=== PATIENT | female | born 1970 | race Caucasian/White ===

== ENCOUNTER 2020-12-13 12:25 | Outpatient (REF) | payer BC, SELFPAY ==
[2020-12-13 13:55] LABS: Hematocrit 40.1 % (37-47); Mean Corpuscular HGB Conc 32.4 g/dl (31.0-35.0); Mean Corpuscular Hemoglobin 31.5 pg (27.0-33.0); Mean Corpuscular Volume 97.1 fL (80-98); Mean Platelet Volume 11.1 fL (9.4-12.3); Platelet Count 311 X10*3/uL (160-400); Red Blood Count 4.13 X10*6/uL (4.20-5.50); Red Cell Distribution Width 12.2 % (11.0-16.0); White Blood Count 7.9 X10*3/uL (4.8-10.8)
[2020-12-13 16:09] LABS: Alanine Aminotransferase 12 U/L (0-31); Albumin Level 4.4 g/dL (3.5-5.0); Alkaline Phosphatase 59 U/L (39-117); Anion Gap 13 (12-20); Aspartate Amino Transferase 17 U/L (5-31); Bilirubin Total 0.8 mg/dL (0.0-1.0); Blood Urea Nitrogen 15 mg/dL (9-16); Calcium 9.6 mg/dL (8.4-10.2); Carbon Dioxide 28 mmol/L (22-29); Chloride 106 mmol/L (96-108); Cholesterol 197 mg/dL; Estimated Glomerular Filt Rate > 60; Glucose Fasting 96 mg/dL (60-99); HDL Cholesterol 76 mg/dL; LDL Cholesterol Calculated 111 mg/dl; Potassium 4.6 mmol/L (3.3-5.1); Sodium 142 mmol/L (135-145); Total Protein 7.2 g/dL (6.5-8.0); Triglycerides 54 mg/dL
[2020-12-13 16:29] LABS: TSH reflex Free T4 0.78 uIU/mL (0.32-4.0)
[2020-12-14 17:03] LABS: Follicle Stimulating Hormone 18.2 mIU/mL
== END 2020-12-13 12:26 | disposition home or self-care (01) ==
LOC: HO.HMGCLDS 12:25
PROVIDERS: PCP Internal Medicine; Visit Provider Internal Medicine
DX: Z00.00 Encounter for general adult medical examination without abnormal findings (principal); E03.9 Hypothyroidism, unspecified; R92.8 Other abnormal and inconclusive findings on diagnostic imaging of breast
CPT/HCPCS: 36415; 80053; 80061; 83001; 84443; 85027

== ENCOUNTER 2021-12-16 09:16 | Outpatient (REF) | payer OTHER, SELFPAY ==
[2021-12-16 11:25] LABS: MANUAL DIFF FLAG NO
[2021-12-16 11:39] LABS: Basophils Absolute Auto 0.1 X10*3/uL (0.0-0.2); Basophils Percent Auto 0.6 % (0-2); Eosinophils Absolute Auto 0.2 X10*3/uL (0.0-0.4); Eosinophils Percent Auto 2.5 % (0-4); Hematocrit 40.8 % (37.0-47.0); Hemoglobin 13.3 g/dl (12.0-16.0); Imm Gran Abs Auto 0.02 X10*3/uL (0.00-0.03); Imm Gran Pct Auto 0.2 % (0.0-0.4); Lymphocytes Absolute Auto 1.7 X10*3/uL (1.2-4.9); Lymphocytes Percent Auto 20.1 % (20-40); Mean Corpuscular HGB Conc 32.6 g/dl (31.0-35.0); Mean Corpuscular Hemoglobin 31.1 pg (27.0-33.0); Mean Corpuscular Volume 95.3 fL (80.0-98.0); Mean Platelet Volume 10.5 fL (9.4-12.3); Monocytes Absolute Auto 0.5 X10*3/uL (0.1-1.2); Monocytes Percent Auto 6.5 % (2-11); Neutrophils Absolute Auto 5.9 x10*3/uL (2.0-8.3); Neutrophils Percent Auto 70.1 % (45-73); Platelet Count 349 X10*3/uL (160-400); Red Blood Count 4.28 X10*6/uL (4.20-5.50); White Blood Count 8.4 X10*3/uL (4.8-10.8)
[2021-12-16 12:15] LABS: Alanine Aminotransferase 11 U/L (0-31); Albumin Level 4.3 g/dL (3.5-5.0); Alkaline Phosphatase 74 U/L (39-117); Anion Gap 17 (12-20); Aspartate Amino Transferase 16 U/L (5-31); Bilirubin Total 0.5 mg/dL (0.0-1.0); Blood Urea Nitrogen 12 mg/dL (9-16); Calcium 9.4 mg/dL (8.4-10.2); Carbon Dioxide 25 mmol/L (22-29); Chloride 104 mmol/L (96-108); Cholesterol 201 mg/dL; Estimated Glomerular Filt Rate > 60; Glucose Fasting 103 mg/dL (60-99); HDL Cholesterol 75 mg/dL; LDL Cholesterol Calculated 116 mg/dl; Potassium 4.5 mmol/L (3.3-5.1); Sodium 141 mmol/L (135-145); Total Protein 7.2 g/dL (6.5-8.0); Triglycerides 52 mg/dL
[2021-12-16 12:20] LABS: TSH reflex Free T4 1.08 uIU/mL (0.32-4.0); Vitamin D 25-OH Total 54.3 ng/mL (>30)
== END 2021-12-16 09:17 | disposition home or self-care (01) ==
LOC: HO.HMGCLDS 09:16
PROVIDERS: PCP Internal Medicine; Visit Provider Internal Medicine
DX: Z00.00 Encounter for general adult medical examination without abnormal findings (principal); E03.9 Hypothyroidism, unspecified
CPT/HCPCS: 36415; 80053; 80061; 82306; 84443; 85025

== ENCOUNTER 2022-12-15 08:55 | Outpatient (REF) | payer OTHER, SELFPAY ==
[2022-12-15 11:54] LABS: MANUAL DIFF FLAG NO
[2022-12-15 12:02] LABS: Basophils Percent Auto 0.7 % (0-2); Eosinophils Absolute Auto 0.2 X10*3/uL (0.0-0.4); Eosinophils Percent Auto 3.9 % (0-4); Hematocrit 40.4 % (37.0-47.0); Imm Gran Abs Auto 0.01 X10*3/uL (0.00-0.03); Imm Gran Pct Auto 0.2 % (0.0-0.4); Lymphocytes Absolute Auto 1.8 X10*3/uL (1.2-4.9); Lymphocytes Percent Auto 32.3 % (20-40); Mean Corpuscular HGB Conc 32.2 g/dl (31.0-35.0); Mean Corpuscular Hemoglobin 31.5 pg (27.0-33.0); Mean Corpuscular Volume 97.8 fL (80.0-98.0); Mean Platelet Volume 11.6 fL (9.4-12.3); Monocytes Absolute Auto 0.4 X10*3/uL (0.1-1.2); Monocytes Percent Auto 7.5 % (2-11); Neutrophils Absolute Auto 3.1 x10*3/uL (2.0-8.3); Neutrophils Percent Auto 55.4 % (45-73); Platelet Count 273 X10*3/uL (160-400); Red Blood Count 4.13 X10*6/uL (4.20-5.50); White Blood Count 5.6 X10*3/uL (4.8-10.8)
[2022-12-15 13:12] LABS: Alanine Aminotransferase 9 U/L (0-31); Albumin Level 4.1 g/dL (3.5-5.0); Alkaline Phosphatase 63 U/L (39-117); Anion Gap 12 (12-20); Aspartate Amino Transferase 18 U/L (5-31); Bilirubin Total 0.6 mg/dL (0.0-1.0); Blood Urea Nitrogen 11 mg/dL (9-16); Calcium 9.4 mg/dL (8.4-10.2); Carbon Dioxide 26 mmol/L (22-29); Chloride 108 mmol/L (96-108); Cholesterol 205 mg/dL (<200); Estimated Glomerular Filt Rate > 60; Glucose Fasting 98 mg/dL (60-99); HDL Cholesterol 71 mg/dL (>40); LDL Cholesterol Calculated 121 mg/dL (<100); Potassium 3.9 mmol/L (3.3-5.1); Sodium 142 mmol/L (135-145); Triglycerides 69 mg/dL (<150)
== END 2022-12-15 08:56 | disposition home or self-care (01) ==
LOC: HO.HMGCLDS 08:55
PROVIDERS: PCP Internal Medicine; Visit Provider Internal Medicine
DX: Z00.00 Encounter for general adult medical examination without abnormal findings (principal); E03.9 Hypothyroidism, unspecified
CPT/HCPCS: 36415; 80053; 80061; 84443; 85025

== ENCOUNTER 2022-12-22 07:46 | Outpatient (AMB) | payer OTHER, SELFPAY ==
--- NOTE | 2022-12-22 08:10 | MHC.PC.OV ---
Vital Signs 12/22/22 08:11 Height 5 ft 5 in Weight 170 lb BMI 28.3 BP 102/66 Blood Pressure Location Lt brachial Position Sitting Pulse 57 Pulse Source Pulse Oximeter Pulse Oximetry (%) 97 Oxygen Delivery Method Room Air Intake Visit Reasons: annual PE Intake Note: Pt is here today for PE. Pt states that her last pap was last year in January at [facility]. Allergies No Known Allergies Allergy (Verified 12/22/22 08:12) Medication List - Last Reconciled 12/22/22 by Delia Hinds MD levonorgestrel-ethinyl estrad 0.1-20 mg-mcg 1 tab PO DAILY levothyroxine 50 mcg PO DAILY miscellaneous medical supply 1 ea miscellaneous .QD Tobacco use date assessed: 12/22/22 Dental Screening Dental Screen Date: 12/22/22 Did you have a dental visit in the last 12 months?: Yes Did you have a dental problem in the last 6 months where you did not have access to dental care?: No Was dental information given to patient?: Patient has dentist HPI annual PE HPI Details Pt presents for PE. 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 [facility] Medical History (Updated 12/22/22 @ 08:35 by Delia Hinds MD) Mammogram abnormal Hypothyroid Normal pelvic exam Annual physical exam Family History (Updated 12/22/22 @ 08:15 by Jen Kumar [facility] Father Diabetes Prostate cancer Mother No problems noted. Social History Housing: House Patient Tobacco Use Status: Never used Tobacco e-Cigarette/Vaping Use: Never Used Current occupational status: employed Cognitive needs: No Hearing needs: No Vision needs: No Questionnaire PHQ-9 Over the last 2 weeks, how often have you been bothered by any of the following problems? 1. Little interest or pleasure in doing things: not at all 2. Feeling down, depressed, or hopeless: not at all 3. Trouble falling or staying asleep, or sleeping too much: not at all 4. Feeling tired or having little energy: not at all 5. Poor appetite or overeating: not at all 6. Feeling bad about yourself - or that you are a failure or have let yourself or your family down: not at all 7. Trouble concentrating on things, such as reading the newspaper or watching television: not at all 8. Moving or speaking so slowly that other people could have noticed. Or the opposite - being so fidgety or restless that you have been moving around a lot more than usual: not at all 9. Thoughts that you would be better off or of hurting yourself in some way: not at all Total score: 0 Depression Screening Interpretation: Negative Depression Screening Done: Yes Source: Developed by Drs. Brennon Toro, Kellie Farah, Keny Teixeira and colleagues, with an educational maria l from [employer]. Thrive Questionnaire Date Thrive assessed: 12/22/22 I am a: Patient What is your living situation today?: I have a steady place to live Within the past 12 months, did the food you bought not last and you didn't have the money to get more?: Never true Within the past 12 months, did you worry whether your food would run out before you got money to buy more?: Never true Do you have trouble paying for medicines?: No Do you have trouble getting transportation to medical appointments?: No Do you have trouble paying your heating and electricity bill?: No Do you have trouble taking care of your child, family member or friend?: No Do you have trouble with day-to-day activities such as bathing, preparing meals, shopping, managing finances, etc.?: No Are you currently unemployed and looking for a job?: No Are you interested in more education?: No Please select the resources that you would like help with: None Currently or been in a relationship where the following occur: no concerns reported AUDIT C Alcohol Use Questionnaire (AUDIT-C) 1. How often do you have a drink containing alcohol?: Monthly or less 2. How many drinks containing alcohol do you have on a typical day when you are drinking?: 1 or 2 3. How often do you have six or more drinks on one occasion?: Never Total Score: 1 JUDITH-7 AMB Questionnaire JUDITH-7 Date JUDITH - 7 assessed: 12/22/22 Feeling nervous, anxious, or on edge: 0 = Not at all Not being able to stop or control worryin = Not at all Worrying too much about different things: 0 = Not at all Trouble relaxin = Not at all Being so restless that it is hard to sit still: 0 = Not at all Becoming easily annoyed or irritable: 0 = Not at all Feeling afraid as if something awful might happen: 0 = Not at all Total JUDITH-7 score (0-4 normal; 5-9 mild; 10-14 moderate; 15-21 severe): 0 Source: Developed by Drs. Brennon Toro, Kellie Farah, Keny Teixeira and colleagues, with an educational maria l from [employer]. Review of Systems Const All systems reviewed & are unremarkable except as noted in HPI and below Reports no additional complaints Eyes Reports no additional complaints ENT Reports no additional complaints Card Reports no additional complaints Resp Reports no additional complaints GI Reports no additional complaints Reports no additional complaints Physical exam (Primary Care) Vital Signs: Last Vital Signs Pulse 57 12/22/22 08:11 BP 102/66 12/22/22 08:11 Pulse Ox 97 12/22/22 08:11 Oxygen Delivery Method Room Air 12/22/22 08:11 BMI result Body Mass Index 28.3 Tobacco/Smoking Status: Tobacco use Status Tobacco use date assessed 12/22/22 12/22/22 08:16 Patient Tobacco Use Status Never used Tobacco 12/22/22 08:16 e-Cigarette/Vaping Use Never Used 12/22/22 08:12 Depression Screening Interpretation: Negative Thrive Assessment: Date of Thrive Assessment Date Thrive assessed 12/13/20 12/22/22 08:12 Currently or been in a relationship where the following occur: no concerns reported Const General: no acute distress HENMT Head: Yes normal to inspection Ears: hearing grossly normal bilaterally Face and sinus: Yes normal facial exam Throat: Yes posterior oropharynx normal Eyes General: appearance normal, both eyes and all related structures Neck Neck: Yes no lymphadenopathy and Yes supple Resp Effort & Inspection: normal respiratory effort Auscultation: clear to auscultation bilaterally Cardio Rhythm: regular rhythm Heart sounds: S1 normal heart sound present and S2 normal heart sound present GI Inspection: Yes normal to inspection Palpation (GI): Soft to palpation Percussion: Yes normal to percussion Auscultation: normal bowel sounds Extrem Other: Tenderness over anterior lateral aspect of her left shoulder, decreased range of motion when reaching overhead and with adduction Assessment and Plan Assessment & Plan (1) Normal pelvic exam: 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 she is up-to-date with mammogram and Pap, refer for colonoscopy (4) Shoulder pain, left: Code(s): M25.512 - Pain in left shoulder Plan: check XR, try Meloxicam and PT, if persists MR and ortho Orders: Orders XR shoulder LT min 2V Today M25.512 - Pain in left shoulder PT Evaluation and Treatment Today M25.512 - Pain in left shoulder Comprehensive [place]. Panel Fast 365 Days E03.9 - Hypothyroidism, unspecified, Z00.00 - Encounter for general adult medical examination without abnormal findings Complete Blood Count Auto Diff 365 Days E03.9 - Hypothyroidism, unspecified, Z00.00 - Encounter for general adult medical examination without abnormal findings TSH reflex Free T4 365 Days E03.9 - Hypothyroidism, unspecified, Z00.00 - Encounter for general adult medical examination without abnormal findings Lipid Panel 365 Days E03.9 - Hypothyroidism, unspecified, Z00.00 - Encounter for general adult medical examination without abnormal findings Referrals Gastroenterology Referral Z00.00 - Encounter for general adult medical examination without abnormal findings Medications: New meloxicam 15 mg PO DAILY 14 tabs 0RF Coding Level of Care Code Est Pt Prev Care 40-64y(73979) Diagnoses Normal pelvic exam Z01.419 Hypothyroid E03.9 Annual physical exam Z00.00 Shoulder pain, left M25.512
[2022-12-22 08:11] VITALS: BP 102/66; PULSE 57; O2SAT 97; BMI 28.3
== END 2022-12-22 09:06 | disposition home or self-care (01) ==
PROVIDERS: Visit Provider Internal Medicine
DX: Z00.00 Encounter for general adult medical examination without abnormal findings (principal); E03.9 Hypothyroidism, unspecified; M25.512 Pain in left shoulder
CPT/HCPCS: 99396

== ENCOUNTER 2022-12-22 08:42 | Outpatient (REF) | payer OTHER, SELFPAY ==
--- NOTE | ~2022-12-22 | XR_ITS ---
EXAMINATION: XR SHOULDER, LEFT CLINICAL INFORMATION: Left shoulder pain COMPARISON: None available. TECHNIQUE: AP external rotation, Grashey, scapular Y, and axillary views of the left shoulder. FINDINGS: The bones and soft tissues are normal. No fracture. Glenohumeral and acromioclavicular alignment is anatomic with normal joint space. No abnormal soft tissue calcifications. XR/XR shoulder LT min 2V IMPRESSION: Unremarkable left shoulder
== END 2022-12-22 08:43 | disposition home or self-care (01) ==
LOC: HO.HMGCX 08:42
PROVIDERS: PCP Internal Medicine; Visit Provider Internal Medicine
DX: M25.512 Pain in left shoulder (principal)
CPT/HCPCS: 73030

== ENCOUNTER 2023-01-11 11:00 | Outpatient (RCR) | payer OTHER, SELFPAY ==
--- NOTE | 2022-12-26 11:35 | MHC.PT.EP ---
[facility] [place] Office [place] Office [place] Office [address] Tigist Hernandez [address] [phone] F: [phone] F: [phone] F: [phone] F: [phone] Physical Therapy Plan of Care Date of Evaluation: 12/26/22 Date of Surgery: n/a Diagnosis: pain in L shoulder Assessment: Patient is a 52 year old female presenting to PT with complaints of pain in her L shoulder. Pt reports onset of pain began a few weeks ago due to insidious onset. She presents today with impairments in pain, ROM, shoulder strength, posture. 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 Pt expresses assisted goal of reducing pain, and is motivated to work towards this in PT. Clinical presentation today is most consistent with signs and sx associated with L shoulder pain and pt will benefit from skilled PT 2 week x 4 weeks to address the following problems and impairments noted upon evaluation: pain, ROM, shoulder strength, posture. These problems limit the patient with the following functional activities: work, reaching, lifting, ADLs. The prescribed treatment plan of care is medically necessary. Co-morbidities of none were identified and taken into considerations of plan of care. Pt was educated on HEP, role of PT, prognosis, POC. Frequency and Duration: The patient will be seen 2 x week x 4 weeks Short Term Goals: Pt will demonstrate improved L shoulder ROM to pain free in available range in 2 weeks. Pt will demonstrate improved L shoulder MMT strength to 5/5 in 2 weeks. Pt will demonstrate improved postural awareness by sitting with biomechanically correct posture without cues throughout session to improve overall postural function in 2 weeks. [employer] Goals: Pt will demonstrate improved SPADI score by 13 points in 4 weeks for improved functional mobility. Pt will demonstrate ability to reach and lift with min to no pain in 4 weeks for improved tolerance to ADLs. Pt will demonstrate ability to work with min to no pain in 4 weeks for return to PLOF. Treatment Plan: Modalities to reduce pain, spasms and effusion. Manual therapy to restore motion and function. Therapeutic exercise to improve strength and flexibility. Neuromuscular re-education for posture and balance. Therapeutic activities to return to functional activities of daily living. Electronically signed by: Nupur Lynne, PT, DPT, ATC Please sign and return to therapist. Thank you for your referral.
--- NOTE | 2023-02-12 07:22 | MHC.PT.DC ---
[facility] [place] Office [place] Office [place] Office [address] Tigist Hernandez [address] [phone] F: [phone] F: [phone] F: [phone] F: [phone] Physical Therapy Discharge Report Diagnosis: pain in L shoulder Date of Surgery: n/a Date of Evaluation: 12/26/22 Date of Discharge: 02/12/23 Treatments to Date: 6 Cancellations to Date: 0 No Shows to Date: 0 Discharge Status: Achieved Goals Improved Function Independent with HEP Discharge Summary: Pt had been placed on 30 day hold. Pt was feeling better at last visit and plan was to d/c if no new problems came up. Therefore, pt to be d/c. Electronically signed by: Nupur Lynne, PT, DPT, ATC Please sign and return to therapist. Thank you for your referral.
== END 2023-02-12 07:22 | disposition home or self-care (01) ==
LOC: HO.PTCHIC 11:00
PROVIDERS: PCP Internal Medicine; Visit Provider Internal Medicine
DX: M25.512 Pain in left shoulder (principal)
CPT/HCPCS: 97110; 97140; 97161

== ENCOUNTER 2023-01-23 10:46 | Outpatient (AMB) | payer OTHER, SELFPAY ==
[2023-01-23 10:52] VITALS: BP 131/54; PULSE 68; BMI 29.1
--- NOTE | 2023-01-23 10:52 | MHC.OFFVIS ---
Intake Vital Signs 01/23/23 10:52 Height 5 ft 5 in Weight 174 lb 9.698 oz BMI 29.1 BP 131/54 L Blood Pressure Location Lt brachial Position Sitting Pulse 68 Intake Visit Reasons: Colonoscopy Screening Intake Note: Patient presents to in office visit today as a new patient for colonoscopy screening. CC: Patient denies having any GI symptoms or concerns today. Home Attendant Required: No Accompanied by: Self / Same As Patient Allergies No Known Allergies Allergy (Verified 12/22/22 08:12) Medication List - Last Reconciled 01/23/23 by Selina Ann PA-C cholecalciferol (vitamin D3) 25 mcg PO DAILY levothyroxine 50 mcg PO DAILY HPI HPI Comments History of Present Illness Details 52 y/o female index screening colonoscopy-no family history of GI cancers, she has no GI complaints. Bowels normal Appetite good Chronic respiratory issues Full-time at [employer] No nausea, vomiting, hematemesis, hematochezia abdominal pain fever or chills [facility] Medical History (Updated 01/23/23 @ 11:36 by Selina Ann PA-C) Mammogram abnormal Hypothyroid Normal pelvic exam Annual physical exam Surgical History No pertinent past surgical history Family History Father Diabetes Prostate cancer Mother No problems noted. (Updated 01/23/23 @ 11:17 by Selina Ann PA-C) Household Members Other:: 2 kids Housing: House Patient Tobacco Use Status: Never used Tobacco e-Cigarette/Vaping Use: Never Used Current occupational status: employed Cognitive needs: No Hearing needs: No Vision needs: No Review of Systems Const All systems reviewed & are unremarkable except as noted in HPI and below Card Denies chest pain and Denies dyspnea Resp Denies dyspnea GI Denies abdominal pain, Denies hematochezia, Denies heartburn, Denies nausea and Denies vomiting Physical Exam Vital Signs: Last Vital Signs Pulse 68 01/23/23 10:52 BP 131/54 L 01/23/23 10:52 BMI result Body Mass Index 29.1 Const General: cooperative, healthy appearing, comfortable, no acute distress and well developed Orientation/consciousness: patient oriented x3 Limitations: no limitations Eyes Sclerae: sclerae normal Resp Effort & Inspection: normal respiratory effort and able to speak in complete sentences Auscultation: clear to auscultation bilaterally, no rales, no rhonchi and no wheezes Cardio Rate: regular rate Rhythm: regular rhythm Heart sounds: S1 normal heart sound present and S2 normal heart sound present GI Palpation (GI): Soft to palpation and nontender Auscultation: normal bowel sounds Skin General skin exam: no rashes or lesions noted Neuro General: patient oriented x3 Extrem General: Yes full ROM Psych Appearance: grossly normal and well kempt Mental Status: mental status grossly normal Speech and movement: Normal speech and movement present and Clear speech present Affect: normal affect Attitude: cooperative Thought content: Normal thought content present Insight: Good insight present (Psych) Judgement: Good judgement present (Psych) Assessment & Plan Assessment & Plan (1) Encounter for screening colonoscopy: Comment: Index screening colonoscopy Discussed procedure, rare risks the for escort as well as prep Code(s): Z12.11 - Encounter for screening for malignant neoplasm of colon Orders: Orders Colonoscopy - GI Use Only Today Z12.11 - Encounter for screening for malignant neoplasm of colon Medications: New bisacodyl (Dulcolax (bisacodyl)) Day before procedure, prep day Take 4 tablets by mouth upon awakening followed by large glass of water 20 mg (4 x 5 mg) PO ONCE 4 tabs 0RF colonoscopy prep 1 day Z12.11 - Encounter for screening for malignant neoplasm of colon polyethylene glycol 3350 (Miralax) Take as directed by mouth the day before your procedure. 238 grams PO ONCE PRN 238 grams 0RF laxative effect 1 day Patient Instructions: Very pleasant 52-year-old female referred for index screening colonoscopy no GI complaints index screening MG prep- reviewed- lit given Encouraged to call with questions or concerns Coding Level of Care Code New Pt Level 3 (07274) Diagnoses Encounter for screening colonoscopy Z12.11 Time Spent (min) 25
== END 2023-01-23 13:13 | disposition home or self-care (01) ==
PROVIDERS: PCP Internal Medicine; Visit Provider Physician Assistant
DX: Z01.818 Encounter for other preprocedural examination (principal); Z12.11 Encounter for screening for malignant neoplasm of colon
CPT/HCPCS: S0285

== ENCOUNTER → 2023-01-23 10:46 | Outpatient (BNVA) | payer OTHER, SELFPAY | PROVIDERS: PCP Internal Medicine; Visit Provider Physician Assistant ==

== ENCOUNTER 2023-07-02 05:50 | Day surgery (SDC) | payer OTHER, SELFPAY ==
--- NOTE | 2023-06-29 09:55 | HO.ANESPROP2 ---
Documented by User: Nan Navarro NP 06/29/23 09:55 HPI - Anesthesia Eval Consult details Narrative: 52yo F for Colonoscopy [facility] Active Problems Active Problems: All Active Problems Encounter for screening colonoscopy (Acute) Shoulder pain, left (Acute) Mammogram abnormal (Acute) Hypothyroid (Acute) Normal pelvic exam (Acute) Annual physical exam (Acute) Past Medical History Medical History (Updated 01/23/23 @ 11:36 by Selina Ann PA-C) Mammogram abnormal Hypothyroid Normal pelvic exam Annual physical exam Family History Family History Father Diabetes Prostate cancer Mother No problems noted. Surgical History Surgical History No pertinent past surgical history Social History Social History (Updated 01/23/23 @ 11:17 by Selina Ann PA-C) Household Members Other:: 2 kids Housing: House Patient Tobacco Use Status: Never used Tobacco e-Cigarette/Vaping Use: Never Used Are you DNR?: No Advance Directives: No Advance Directives Information Provided: Yes Current occupational status: employed Cognitive needs: No Hearing needs: No Vision needs: No Meds Allergies Allergy/AdvReac Type Severity Reaction Status Date / Time No Known Allergies Allergy Verified 12/22/22 08:12 Home Medications ?Medication ?Instructions ?Recorded ?Confirmed ?Last Taken ?Type cholecalciferol (vitamin D3) 25 25 mcg PO DAILY 01/23/23 01/23/23 Unknown History mcg (1,000 unit) capsule Assessment and Plan Assessment Anesthesia Assessment: Chart Reviewed Documented by User: Falguni Chong MD 07/02/23 07:07 [facility] Past Medical History Medical History (Updated 01/23/23 @ 11:36 by Selina Ann PA-C) Mammogram abnormal Hypothyroid Normal pelvic exam Annual physical exam Family History Family History Father Diabetes Prostate cancer Mother No problems noted. Family history of problems with anesthesia: No Surgical History Surgical History No pertinent past surgical history History of Problems with Anesthesia: No Social History Social History (Updated 01/23/23 @ 11:17 by Selina Ann PA-C) Household Members Other:: 2 kids Housing: House Patient Tobacco Use Status: Never used Tobacco e-Cigarette/Vaping Use: Never Used Are you DNR?: No Advance Directives: No Advance Directives Information Provided: Yes Current occupational status: employed Cognitive needs: No Hearing needs: No Vision needs: No Meds Allergies Allergy/AdvReac Type Severity Reaction Status Date / Time No Known Allergies Allergy Verified 12/22/22 08:12 Home Medications ?Medication ?Instructions ?Recorded ?Confirmed ?Last Taken ?Type cholecalciferol (vitamin D3) 25 25 mcg PO DAILY 01/23/23 01/23/23 Unknown History mcg (1,000 unit) capsule Exam Airway Mallampati Class: II (implants left lateral) TM Dist: >3cm Neck ROM: Full Heart: rrr Lungs: cta Assessment and Plan Assessment Anesthesia Assessment: Anesthesia Plan Discussed Final Anesthetic Review Family History of Problems with Anesthesia: No History of Problems with Anesthesia: No NPO: Yes ASA Class: II Final Preanesthetic Review: No Changes in Pt Med Stat, Meds/Allgs Chart Reviewed and Consent Obtained/Reviewed Patient Risk: Low Procedure Risk: Low Anesthetic Plan Anesthetic Plan: MAC: Disposition: Standard PACU
[2023-07-02 06:44] VITALS: BP 142/73; PULSE 76; RESP 18; TEMP 36.4; O2SAT 98; BMI 27.5
[2023-07-02] MEDS: Lactated Ringers 1,000 ML 100 ML IVCONT (07:02)
--- NOTE | 2023-07-02 07:20 | PC.NURSE ---
pt last period was 3 mths ago unable to urinate bolus given anaesthesia aware
--- NOTE | 2023-07-02 07:38 | MHC.SHP ---
Pre-Procedural Eval Section A - 24 Hr Update-Section A only Date of Service: 07/02/23 The patient is an INPATIENT: No The patient has been examined within 24 hours of the surgical procedure. The History & Physical has been completed within 30 days and I have reviewed it.: No Section B - Complete if H&P > 30 days Chief Complaint: colon cancer screening Relevant Family History (Specify if Yes): No Relevant Social History: None Present Medications: see Short Stay Collaborative assessment Medical History: Significant History (Hypothyroidism) History of Previous Operations: No relevant previous surgery Allergies: Allergies Allergy/AdvReac Type Severity Reaction Status Date / Time No Known Allergies Allergy Verified 12/22/22 08:12 Review of Systems Sugical H&P ROS: Negative: Constitution, Cardiovascular, Respiratory and Gastrointestinal Exam Surgical H&P Exam: Normal: Heart, Normal: Lungs, Normal: Extremities and Normal: Abdomen Plan Diagnosis/Plan: Unchanged I have reviewed the history and physical and performed a pertinent physical examination on my patient. No changes have occurred unless specified. Time Spent With Patient Time: Total time managing care of this patient today ____ minutes.
--- NOTE | 2023-07-02 08:14 | P.OP_ITS ---
Operative Note Operative Note Date of Service: 07/02/23 Narrative: COLONOSCOPY TILL CECUM Pre-op diagnosis: Colon cancer screening (First colonoscopy). Post-op diagnosis:? Diverticulosis Endoscopist:? Pamela Orourke MD Anesthesia:?MAC Consent: Indications for the procedure and potential complications of bleeding, perforation, reaction to medications and missed diagnosis were discussed with the patient and informed consent was obtained. Instrument: Olympus PCF H 190 L variable stiffness pediatric colonoscope Monitoring: Vital signs and clinical assessment, intermittent blood pressure monitoring, continuous EKG monitoring, Pulse oximetry and Carbon Dioxide monitoring were done throughout the procedure. Please see anesthesia flowsheet. Colon withdrawl time was 11 minutes. Procedure: The patient was placed in the left lateral decubitis position and pre-procedure medications were administered. After a digital rectal examination of the ano-rectum, the video colonoscope was inserted into the rectum and advanced through the colon to the cecum. The colonoscope was slowly withdrawn in a retrograde panoramic fashion and the colon mucosa was carefully examined including a retroflexed view of the rectum. Findings and interventions are described below. Procedure Difficulty: without difficulty Findings: Terminal Ileum: Not evaluated Cecum: Normal Ascending Colon: Normal Transverse Colon: Normal Descending Colon: Moderate diverticulosis Sigmoid Colon: Moderate diverticulosis Rectum: Normal Ano-rectum: Moderate internal hemorrhoids Colon preparation: Excellent, after some irrigation. [place] Bowel Preparation Scale Right colon; 3 Transverse colon: 3 Left colon; 3 (0 = Unprepared colon segment with mucosa not seen due to solid stool that cannot be cleared. 1 = Portion of mucosa of the colon segment seen, but other areas of the colon segment not well seen due to staining, residual stool and/or opaque liquid. 2 = Minor amount of residual staining, small fragments of stool and/or opaque liquid, but mucosa of colon segment seen well. 3 = Entire mucosa of colon segment seen well with no residual staining, small fragments of stool or opaque liquid) Impression and Post Procedure Diagnosis: Colonoscopy Findings: No polyps were detected Moderate diverticulosis seen in the left colon Plan: Repeat Colonoscopy in 10 years. Above findings were reviewed with the patient and relevant handouts were given and the discharge area.
[2023-07-02 08:57] LABS: HCG Quantitative < 2 mIU/mL
[2023-07-02 09:47] VITALS: BP 104/60; PULSE 77; RESP 16; TEMP 36.9; O2SAT 99
[2023-07-02 10:02] VITALS: BP 125/87; PULSE 60; RESP 16; TEMP 36.9; O2SAT 99
== END 2023-07-02 10:46 | disposition home or self-care (01) ==
PROVIDERS: Anesthesiology; PCP Internal Medicine; Visit Provider Internal Medicine Gastroenterology
PROC: 0DJD8ZZ Inspection of Lower Intestinal Tract, Via Natural or Artificial Opening Endoscopic (ICD-10-PCS; CPT 45378; principal; 2023-07-02 08:30)
DX: Z12.11 Encounter for screening for malignant neoplasm of colon (principal); K57.30 Diverticulosis of large intestine without perforation or abscess without bleeding; E03.9 Hypothyroidism, unspecified; Z79.899 Other long term (current) drug therapy; Z56.0 Unemployment, unspecified
CPT/HCPCS: 45378; 36415; 84702; J2704

== ENCOUNTER → 2023-07-02 05:50 | Outpatient (BNV) | payer OTHER, SELFPAY | PROVIDERS: PCP Internal Medicine; Visit Provider Internal Medicine Gastroenterology | DX: Z12.11 Encounter for screening for malignant neoplasm of colon (principal); K57.90 Diverticulosis of intestine, part unspecified, without perforation or abscess without bleeding; K64.8 Other hemorrhoids | CPT/HCPCS: 45378 ==

== ENCOUNTER 2023-12-05 08:56 | Outpatient (REF) | payer OTHER, SELFPAY ==
[2023-12-05 10:03] LABS: MANUAL DIFF FLAG NO
[2023-12-05 10:10] LABS: Basophils Percent Auto 0.9 % (0-2); Eosinophils Absolute Auto 0.3 X10*3/uL (0.0-0.4); Eosinophils Percent Auto 5.7 % (0-4); Hematocrit 39.5 % (37.0-47.0); Hemoglobin 12.8 g/dl (12.0-16.0); Imm Gran Abs Auto 0.01 X10*3/uL (0.00-0.03); Imm Gran Pct Auto 0.2 % (0.0-0.4); Lymphocytes Absolute Auto 1.6 X10*3/uL (1.2-4.9); Lymphocytes Percent Auto 35.7 % (20-40); Mean Corpuscular HGB Conc 32.4 g/dl (31.0-35.0); Mean Corpuscular Hemoglobin 31.7 pg (27.0-33.0); Mean Corpuscular Volume 97.8 fL (80.0-98.0); Mean Platelet Volume 10.6 fL (9.4-12.3); Monocytes Absolute Auto 0.5 X10*3/uL (0.1-1.2); Monocytes Percent Auto 11.1 % (2-11); Neutrophils Absolute Auto 2.1 x10*3/uL (2.0-8.3); Neutrophils Percent Auto 46.4 % (45-73); Platelet Count 269 X10*3/uL (160-400); Red Blood Count 4.04 X10*6/uL (4.20-5.50); Red Cell Distribution Width 12.3 % (11.0-16.0); White Blood Count 4.6 X10*3/uL (4.8-10.8)
[2023-12-05 10:44] LABS: Alanine Aminotransferase 11 U/L (0-31); Albumin Level 4.2 g/dL (3.5-5.0); Alkaline Phosphatase 74 U/L (39-117); Anion Gap 10 (12-20); Aspartate Amino Transferase 16 U/L (5-31); Bilirubin Total 0.4 mg/dL (0.0-1.0); Blood Urea Nitrogen 11 mg/dL (9-16); Carbon Dioxide 26 mmol/L (22-29); Chloride 109 mmol/L (96-108); Cholesterol 191 mg/dL (<200); Estimated Glomerular Filt Rate > 60; Glucose Fasting 107 mg/dL (60-99); HDL Cholesterol 67 mg/dL (>40); LDL Cholesterol Calculated 107 mg/dL (<100); Potassium 3.9 mmol/L (3.3-5.1); Sodium 141 mmol/L (135-145); TSH reflex Free T4 1.51 uIU/mL (0.32-4.0); Total Protein 7.1 g/dL (6.5-8.0); Triglycerides 87 mg/dL (<150)
== END 2023-12-05 08:57 | disposition home or self-care (01) ==
LOC: HO.HMGCLDS 08:56
PROVIDERS: PCP Internal Medicine; Visit Provider Internal Medicine
DX: Z00.00 Encounter for general adult medical examination without abnormal findings (principal); E03.9 Hypothyroidism, unspecified
CPT/HCPCS: 36415; 80053; 80061; 84443; 85025

== ENCOUNTER 2023-12-27 07:30 | Outpatient (AMB) | payer OTHER, SELFPAY ==
[2023-12-27 07:44] VITALS: BP 130/72; PULSE 58; O2SAT 97; BMI 28.1
--- NOTE | 2023-12-27 07:44 | MHC.PC.OV ---
Vital Signs 12/27/23 07:44 Height 5 ft 5 in Weight 169 lb BMI 28.1 BP 130/72 Blood Pressure Location Lt brachial Position Sitting Pulse 58 Pulse Source Pulse Oximeter Pulse Oximetry (%) 97 Oxygen Delivery Method Room Air Intake Visit Reasons: Annual PE Intake Note: Pt is here today for her PE Allergies No Known Allergies Allergy (Verified 12/27/23 07:44) Medication List - Last Reconciled 12/27/23 by Delia Hinds MD cholecalciferol (vitamin D3) 25 mcg PO DAILY levothyroxine 50 mcg PO DAILY Tobacco use date assessed: 12/27/23 Dental Screening Dental Screen Date: 12/27/23 Did you have a dental visit in the last 12 months?: Yes Did you have a dental problem in the last 6 months where you did not have access to dental care?: No Was dental information given to patient?: Patient has dentist HPI Annual PE HPI Details Pt presents for PE. Patient's daughter who lives in [place] had a baby 1 month ago. [facility] Medical History Mammogram abnormal Hypothyroid Normal pelvic exam Annual physical exam Surgical History (Updated 12/27/23 @ 15:02 by Delia Hinds MD) No pertinent past surgical history Family History Father Diabetes Prostate cancer Mother No problems noted. Social History Household Members Other:: , 2 kids, walks 3 x week Housing: House Patient Tobacco Use Status: Never used Tobacco e-Cigarette/Vaping Use: Never Used Current occupational status: employed Cognitive needs: No Hearing needs: No Vision needs: No Questionnaire PHQ-9 Over the last 2 weeks, how often have you been bothered by any of the following problems? 1. Little interest or pleasure in doing things: not at all 2. Feeling down, depressed, or hopeless: not at all 3. Trouble falling or staying asleep, or sleeping too much: not at all 4. Feeling tired or having little energy: not at all 5. Poor appetite or overeating: not at all 6. Feeling bad about yourself - or that you are a failure or have let yourself or your family down: not at all 7. Trouble concentrating on things, such as reading the newspaper or watching television: not at all 8. Moving or speaking so slowly that other people could have noticed. Or the opposite - being so fidgety or restless that you have been moving around a lot more than usual: not at all 9. Thoughts that you would be better off or of hurting yourself in some way: not at all Total score: 0 Depression Screening Interpretation: Negative Depression Screening Done: Yes 20327 - PHQ-9 Billing: Yes Source: Developed by Drs. Brennon Toro, Kellie Farah, Keny Teixeira and colleagues, with an educational maria l from [employer]. Thrive Questionnaire Date Thrive assessed: 12/27/23 I am a: Patient What is your living situation today?: I have a steady place to live Within the past 12 months, did the food you bought not last and you didn't have the money to get more?: Never true Within the past 12 months, did you worry whether your food would run out before you got money to buy more?: Never true Do you have trouble paying for medicines?: No Do you have trouble getting transportation to medical appointments?: No Do you have trouble paying your heating and electricity bill?: No Do you have trouble taking care of your child, family member or friend?: No Do you have trouble with day-to-day activities such as bathing, preparing meals, shopping, managing finances, etc.?: No Are you currently unemployed and looking for a job?: No Are you interested in more education?: No Please select the resources that you would like help with: None Currently or been in a relationship where the following occur: I choose not to answer THRIVE Score: 0 AUDIT C Alcohol Use Questionnaire (AUDIT-C) 2. How many drinks containing alcohol do you have on a typical day when you are drinking?: 1 or 2 Total Score: 0 JUDITH-7 AMB Questionnaire JUDITH-7 Date JUDITH - 7 assessed: 12/27/23 Feeling nervous, anxious, or on edge: 0 = Not at all Not being able to stop or control worryin = Not at all Worrying too much about different things: 0 = Not at all Trouble relaxin = Not at all Being so restless that it is hard to sit still: 0 = Not at all Becoming easily annoyed or irritable: 0 = Not at all Feeling afraid as if something awful might happen: 0 = Not at all Total JUDITH-7 score (0-4 normal; 5-9 mild; 10-14 moderate; 15-21 severe): 0 Source: Developed by Drs. Brennon Toro, Kellie Farah, Keny Teixeira and colleagues, with an educational maria l from [employer]. Review of Systems Const All systems reviewed & are unremarkable except as noted in HPI and below Reports no additional complaints Eyes Reports no additional complaints ENT Reports no additional complaints Card Reports no additional complaints Resp Reports no additional complaints GI Reports no additional complaints Reports no additional complaints Physical exam (Primary Care) Vital Signs: Last Vital Signs Pulse 58 12/27/23 07:44 BP 130/72 12/27/23 07:44 Pulse Ox 97 12/27/23 07:44 Oxygen Delivery Method Room Air 12/27/23 07:44 BMI result Body Mass Index 28.1 Tobacco/Smoking Status: Tobacco use Status Tobacco use date assessed 12/27/23 12/27/23 07:45 Patient Tobacco Use Status Never used Tobacco 12/27/23 08:19 e-Cigarette/Vaping Use Never Used 12/27/23 08:19 PHQ-9: PHQ-9 Score PHQ-9: Total score 0 12/27/23 08:20 Depression Screening Interpretation: Negative Thrive Assessment: Date of Thrive Assessment Date Thrive assessed 12/27/23 12/27/23 07:45 Currently or been in a relationship where the following occur: I choose not to answer Const General: no acute distress HENMT Head: Yes normal to inspection Ears: hearing grossly normal bilaterally Face and sinus: Yes normal facial exam Mouth: Normal oral and palatal mucosa present Throat: Yes posterior oropharynx normal Eyes General: appearance normal, both eyes and all related structures Resp Effort & Inspection: normal respiratory effort Auscultation: clear to auscultation bilaterally Cardio Rhythm: regular rhythm Heart sounds: S1 normal heart sound present and S2 normal heart sound present GI Inspection: Yes normal to inspection Palpation (GI): Soft to palpation Percussion: Yes normal to percussion Auscultation: normal bowel sounds Coding Level of Care Code Est Pt Prev Care 40-64y(63064) Diagnoses Hypothyroid E03.9 Annual physical exam Z00.00 Hx of colonoscopy Z98.890 Assessment & Plan Assessment & Plan (1) Hypothyroid: Code(s): E03.9 - Hypothyroidism, unspecified Category: Medical Plan: Continue levothyroxine (2) Annual physical exam: Code(s): Z00.00 - Encounter for general adult medical examination without abnormal findings Category: Medical Plan: Well-balanced diet regular physical activity discussed with the patient. She is up-to-date with the mammogram Pap smear by mortician investigator and colonoscopy (3) Hx of colonoscopy: Comment: negative 06/2023, [facility], recheck 10 yrs Code(s): Z98.890 - Other specified postprocedural states Category: Surgical Plan: f/u Orders: Orders Lipid Panel 1 Year E03.9 - Hypothyroidism, unspecified, Z00.00 - Encounter for general adult medical examination without abnormal findings Comprehensive [place]. Panel Fast 1 Year E03.9 - Hypothyroidism, unspecified, Z00.00 - Encounter for general adult medical examination without abnormal findings Complete Blood Count Auto Diff 1 Year E03.9 - Hypothyroidism, unspecified, Z00.00 - Encounter for general adult medical examination without abnormal findings TSH reflex Free T4 1 Year E03.9 - Hypothyroidism, unspecified, Z00.00 - Encounter for general adult medical examination without abnormal findings UA w Microscopic 1 Year E03.9 - Hypothyroidism, unspecified, Z00.00 - Encounter for general adult medical examination without abnormal findings
== END 2023-12-27 08:26 | disposition home or self-care (01) ==
PROVIDERS: PCP Internal Medicine; Visit Provider Internal Medicine
DX: E03.9 Hypothyroidism, unspecified (principal); Z00.00 Encounter for general adult medical examination without abnormal findings; Z98.890 Other specified postprocedural states

== ENCOUNTER → 2023-12-27 07:30 | Outpatient (BNVA) | payer OTHER, SELFPAY | PROVIDERS: PCP Internal Medicine; Visit Provider Internal Medicine ==

== ENCOUNTER 2024-12-24 07:04 | Outpatient (REF) | payer BC, SELFPAY ==
--- OUTSIDE RECORDS SUMMARY | 2024-12-24 07:08 | XMS_ITS | Encounter Summary ---
Author Organization [facility] Address [address] [place] [address] Care Team Providers Care Dot Compliance Coordinator Name Role Phone Delia Hinds MD Primary Care Provider [phone] Encounter Details Date Type Department Care Team (Latest Contact Info) Description 04/03/2024 Lab Requisition [facility] - Main Lab [address] [place] [address] Sanjana Wang MD [address] [facility] [address] [place] [id number] Encounter for gynecological examination (general) (routine) without abnormal findings Social History Tobacco Use Types Packs/Day Years Used Date Smoking Tobacco: Never Assessed Comments Unknown Sex and Gender Information Value Date Recorded Sex Assigned at Not on file Legal Sex Female 8:27 PM EST Gender Identity Not on file Sexual Orientation Not on file documented as of this encounter Plan of Treatment Not on file documented as of this encounter Procedures Procedure Name Priority Date/Time Associated Diagnosis Comments CHLAMYDIA TRACHOMATIS AND NEISSERIA GONORRHOEAE BY TMA, THINPREP Routine 04/02/2024 12:00 AM EST Encounter for gynecological examination (general) (routine) without abnormal findings PAP SMEAR Routine 04/02/2024 12:00 AM EST Encounter for gynecological examination (general) (routine) without abnormal findings documented in this encounter Results * Chlamydia trachomatis and neisseria gonorrhoeae by tma, thinprep (04/02/2024 12:00 AM EST) N. gonorrhoeae, RNA Probe Negative Negative LAB MICROBIOLOGY METHOD 04/03/2024 12:15 PM EST [facility] Chlamydia, RNA Probe Negative Negative LAB MICROBIOLOGY METHOD 04/03/2024 12:15 PM [facility] Brushing/Spatula Cervix uteri structure / Unknown 04/02/2024 04/03/2024 6:34 AM EST Sanjana Wang MD LAB CYTOLOGY ORDERABLES Final Result [facility] [address] [place] [address], * Pap smear (04/02/2024 12:00 AM EST) Interpretation Negative for intraepithelial lesion or malignancy 04/07/2024 10:59 AM [facility] General Categorization Negative 04/07/2024 10:59 AM [facility] Specimen Adequacy Satisfactory for evaluation, endocervical/ocasio sformation zone component present 04/07/2024 10:59 AM [facility] Pap Methodology Liquid Based Pap Test 04/07/2024 10:59 AM [facility] Disclaimer The Pap test is a screening test which carries an inherent false negative rate. These test results should be correlated with the patient's clinical findings and history. This Pap test was processed using an automated screening system. Technical cytopathology services provided by [facility], at [address] [place] [address] (CLIA # [id number]/Nichelle Vazquez MD, Catalyst Operator.) 04/07/2024 10:59 AM [facility] Console Pap Interpretation Reported 04/07/2024 10:59 AM [facility] Brushing/Spatula Cervix uteri structure / Unknown 04/02/2024 04/03/2024 6:34 AM EST us Sanjana Wang MD LAB CYTOLOGY ORDERABLES Final Result [facility] [address] [place] [address], documented in this encounter Visit Diagnoses Diagnosis Encounter for gynecological examination (general) (routine) without abnormal findings documented in this encounter Care Teams Dot Compliance Coordinator Relationship Specialty Start Date End Date Delia Hinds MD [address] [place] [phone] PCP - General Internal Medicine 04/03/24 documented as of this encounter
--- OUTSIDE RECORDS SUMMARY | 2024-12-24 07:08 | XMS_ITS | Clinical Summary ---
Author Organization [address] [facility] Address [address] [place] [address] Phone Care Team Providers Care Fabrication Lead Name Role Phone Delia Hinds MD Primary Care Provider [phone] Social History Tobacco Use Types Packs/Day Years Used Date Smoking Tobacco: Never Assessed Comments Unknown Sex and Gender Information Value Date Recorded Sex Assigned at Not on file Legal Sex Female 8:27 PM EST Gender Identity Not on file Sexual Orientation Not on file Plan of Treatment Health Maintenance Due Date Last Done Comments Colorectal Cancer Screening: Colonoscopy 1970 DTaP,Tdap,and Td Vaccines (1 - Tdap) 08/03/1991 Hepatitis B Vaccines (1 of 3 - 19+ 3-dose series) 08/03/1991 HIV Screening 02/04/2022 Hepatitis C Screening 02/04/2022 Social Influencers of Health Screening 02/04/2022 Pneumococcal Vaccine: 50+ Years (1 of 1 - PCV) 2022 Zoster Vaccines (1 of 2) 2022 Breast Cancer Screening 01/05/2024 01/05/20 22, 01/16/2020, 09/03/2017 Depression Screening 03/05/2024 COVID-19 Vaccine (1 - 2023-2 5 season) 2024 Influenza Vaccine (#1) 2024 Cervical Cancer Screening: P ap Smear 04/02/2027 04/02/2024 RSV Immunization Adult Patients (1 - 1-dose 75+ series) 08/03/2047 HIB Vaccines Aged Out No longer eligi ble based on patient's age to complete this topic HPV Vaccines Aged Out No longer eligi ble based on patient's age to complete this topic Hepatitis A Vaccines Aged Out No long er eligible based on patient's age to complete this topic IPV Vaccines Aged Out No longer eligi ble based on patient's age to complete this topic MMR Vaccines Aged Out No longer eligi ble based on patient's age to complete this topic Meningococcal ACWY Vaccine Aged Out N o longer eligible based on patient's age to complete this topic Meningococcal B Vaccine Aged Out No l onger eligible based on patient's age to complete this topic RSV Immunization Patients Under 20 months Aged Out No longer eligible b ased on patient's age to complete this topic Varicella Vaccines Aged Out No longer eligible based on patient's age to complete this topic Procedures Procedure Name Priority Date/Time Associated Diagnosis Comments PAP SMEAR Routine 04/02/2024 12:00 AM EST Encounter for gynecological examination (general) (routine) without abnormal findings CANDIE SCREENING DIGITAL Routine 01/04/2022 7:11 PM EDT Encounter for screening mammogram for malignant neoplasm of breast from Last 3 Months or Most Recently Relevant to Health Maintenance Results * Pap smear (04/02/2024 12:00 AM EST) Interpretation Negative for intraepithelial lesion or malignancy 04/07/2024 10:59 AM [facility] General Categorization Negative 04/07/2024 10:59 AM [facility] Specimen Adequacy Satisfactory for evaluation, endocervical/ocasio sformation zone component present 04/07/2024 10:59 AM [facility] Pap Methodology Liquid Based Pap Test 04/07/2024 10:59 AM [facility] Disclaimer The Pap test is a screening test which carries an inherent false negative rate. These test results should be correlated with the patient's clinical findings and history. This Pap test was processed using an automated screening system. Technical cytopathology services provided by [facility], at [address] [place] [address], [place] [address] (CLIA # [id number]/Nichelle Vazquez MD, Manufacturing Helper.) 04/07/2024 10:59 AM EST [facility] Console Pap Interpretation Reported 04/07/2024 10:59 AM EST [facility] Brushing/Spatula Cervix uteri structure / Unknown 04/02/2024 04/03/2024 6:34 AM EST us Kushal Wang MD LAB CYTOLOGY ORDERABLES Final Result [facility] [address] [place] [address], * CANDIE SCREENING DIGITAL (01/04/2022 7:11 PM EDT) Anatomical Region Laterality Modality Mammography 01/04/2022 2:03 PM EDT Narrative 01/04/2022 7:11 PM EDT [facility] Diagnostic Imaging Department [address] [place] [id number] Patient: NIMAFABIHODAFREDERICK /Age/Sex: 1970 - 51 - F Unit#: [id number] Location/Status: SPDIMA/REG CLI Mnemonic/Ordering Site: [facility] Ordering Physician: KUSHAL FU MD Candie Screening Digital - 01/04/22 - 9691 History: Bilateral breast cancer screening. 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 Technique: Digital mammography. Conventional CC and MLO projections with tomosynthesis MLO views and computer aided detection. Comparison: [facility] 01/16/2020 dating back to 07/03/2013. Findings: Breast tissue consists of fatty and fibroglandular elements (category b density) bilaterally (as calculated by [employer] software). Tissue marker in place posterior superior left breast. Stable adjacent asymmetry. There is no suspicious group of microcalcifications, mass, architectural distortion or suspicious change in breast tissue density. Impression: No evidence of malignancy. BIRADS category 1; negative study, 3341F 14869, [id number] Note: Patient information entered into a reminder system with a target due date for the next mammogram: CPT II 7025F Dictating Physician: TOMMY HENSLEY MD Electronically Signed by: TOMMY HENSLEY MD Dic Date/Time: 01/04/221908 Sign date/Time: 01/04/221910 Procedure Note Tommy Hensley MD - 04/06/2023 [facility] Diagnostic Imaging Department [address] [place] [address] Patient: FREDERICK WHITAKER /Age/Sex: 1970 - 51 - F Unit#: [id number] Location/Status: [facility]/REG CLI Mnemonic/Ordering Site: [facility] Ordering Physician: KUSHAL FU MD Candie Screening Digital - 01/04/22 - 1446 History: Bilateral breast cancer screening. Prior benign biopsy leftbreast diagnosed fibroadenoma September 2018. Technique: Digital mammography. Conventional CC and MLO projectionswith tomosynthesis MLO views and computer aided detection. Comparison: [facility] 01/16/2020 dating back to 07/03/2013. Findings: Breast tissue consists of fatty and fibroglandular elements (category b density) bilaterally (as calculated by [employer]). Tissue marker in place posterior superior left breast. Stable adjacent asymmetry. There is no suspicious group of microcalcifications, mass, architectural distortion or suspicious change in breast tissue density. Impression: No evidence of malignancy. BIRADS category 1; negative study, 3341F 48905, [id number] Note: Patient information entered into a reminder system with a target duedate for the next mammogram: CPT II 7025F Dictating Physician: TOMMY HENSLEY MD Electronically Signed by: TOMMY HENSLEY MD Dic Date/Time: 01/04/221908 Sign date/Time: 01/04/221910 Kushal Wang MD IMG BI PROCEDURES Final Result from Last 3 Months or Most Recently Relevant to Health Maintenance Insurance [employer] Care Teams Fabrication Lead Relationship Specialty Start Date End Date Delia Hinds MD [address] [place] [address] PCP - General Internal Medicine 04/03/24
[2024-12-24 10:13] LABS: Appearance Urine Cloudy; Glucose Urine UA Negative (Negative); PH 7.5 (5.0-9.0); Specific Gravity - Urine 1.015 (1.005-1.025); UMIC TRIGGER UA YES
[2024-12-24 10:47] LABS: MANUAL DIFF FLAG NO
[2024-12-24 10:50] LABS: Hematocrit 38.0 % (37.0-47.0); Hemoglobin 12.4 g/dl (12.0-16.0); Imm Gran Abs Auto 0.01 X10*3/uL (0.00-0.03); Imm Gran Pct Auto 0.2 % (0.0-0.4); Lymphocytes Absolute Auto 2.5 X10*3/uL (1.2-4.9); Mean Corpuscular HGB Conc 32.6 g/dl (31.0-35.0); Mean Corpuscular Hemoglobin 31.2 pg (27.0-33.0); Mean Corpuscular Volume 95.5 fL (80.0-98.0); NRBC Abs Auto 0.000 X10*3/uL (0.0-0.012); NRBC Pct Auto 0.0 /100WBC (0.0-0.2); Platelet Count 278 X10*3/uL (160-400); Red Blood Count 3.98 X10*6/uL (4.20-5.50); White Blood Count 6.6 X10*3/uL (4.8-10.8)
[2024-12-24 11:14] LABS: Alanine Aminotransferase 25 U/L (0-31); Albumin Level 4.3 g/dL (3.5-5.0); Alkaline Phosphatase 83 U/L (39-117); Anion Gap 9 (12-20); Aspartate Amino Transferase 21 U/L (5-31); Blood Urea Nitrogen 15 mg/dL (9-16); Calcium 9.3 mg/dL (8.4-10.2); Carbon Dioxide 28 mmol/L (22-29); Chloride 111 mmol/L (96-108); Cholesterol 210 mg/dL (<200); Estimated Glomerular Filt Rate > 60; HDL Cholesterol 68 mg/dL (>40); Potassium 4.0 mmol/L (3.3-5.1); Sodium 144 mmol/L (135-145); Total Protein 6.8 g/dL (6.5-8.0); Triglycerides 43 mg/dL (<150)
== END 2024-12-24 07:05 | disposition home or self-care (01) ==
LOC: HO.HMGCLDS 07:04
PROVIDERS: PCP Internal Medicine; Visit Provider Internal Medicine
DX: Z00.00 Encounter for general adult medical examination without abnormal findings (principal); E03.9 Hypothyroidism, unspecified
CPT/HCPCS: 36415; 80053; 80061; 81001; 84443; 85025

== ENCOUNTER 2025-01-01 08:22 | Outpatient (AMB) | payer OTHER, SELFPAY ==
--- NOTE | 2025-01-01 08:26 | MHC.PC.OV ---
Vital Signs 01/01/25 08:28 Height 5 ft 5 in Weight 178 lb BMI 29.6 BP 110/80 Blood Pressure Location Rt brachial Position Sitting Respiration 16 Pulse 63 Pulse Source Pulse Oximeter Temp 98.6 F Temp Source Oral Pulse Oximetry (%) 97 Oxygen Delivery Method Room Air Intake Visit Reasons: Annual PE Intake Note: Pt is here today for her PE Motorsports Technician Required: No Allergies No Known Allergies Allergy (Verified 01/01/25 08:26) Medication List - Last Reconciled 01/01/25 by Delia Hinds MD cholecalciferol (vitamin D3) 25 mcg PO DAILY levothyroxine 50 mcg PO DAILY Tobacco use date assessed: 01/01/25 Dental Screening Dental Screen Date: 01/01/25 Did you have a dental visit in the last 12 months?: Yes Did you have a dental problem in the last 6 months where you did not have access to dental care?: No Was dental information given to patient?: Patient has dentist HPI Annual PE HPI Details Pt presents for PE. Patient complains of bilateral hand (thumb index and middle finger) pain and burning sensation numbness worse at night on and off for few months. 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 Patient's son in law has been stationed in [employer] for 1 year. [facility] Medical History (Updated 01/01/25 @ 08:46 by Delia Hinds MD) Mammogram abnormal Hypothyroid Normal pelvic exam Annual physical exam Surgical History (Updated 01/01/25 @ 08:45 by Delia Hinds MD) Hx of colonoscopy No pertinent past surgical history Family History Father Diabetes Prostate cancer Mother No problems noted. Social History Household Members Other:: , 2 kids, walks 3 x week Housing: House Patient Tobacco Use Status: Never used Tobacco e-Cigarette/Vaping Use: Never Used Current occupational status: employed Cognitive needs: No Hearing needs: No Vision needs: No Questionnaire PHQ-9 Over the last 2 weeks, how often have you been bothered by any of the following problems? 1. Little interest or pleasure in doing things: several days 2. Feeling down, depressed, or hopeless: not at all 3. Trouble falling or staying asleep, or sleeping too much: not at all 4. Feeling tired or having little energy: not at all 5. Poor appetite or overeating: not at all 6. Feeling bad about yourself - or that you are a failure or have let yourself or your family down: not at all 7. Trouble concentrating on things, such as reading the newspaper or watching television: not at all 8. Moving or speaking so slowly that other people could have noticed. Or the opposite - being so fidgety or restless that you have been moving around a lot more than usual: not at all 9. Thoughts that you would be better off or of hurting yourself in some way: not at all Total score: 1 Depression Screening Interpretation: Negative Depression Screening Done: Yes Source: Developed by Drs. Brennon Toro, Kellie Farah, Keny Teixeira and colleagues, with an educational maria l from [employer]. Thrive Questionnaire Date Thrive assessed: 01/01/25 I am a: Patient What is your living situation today?: I have a steady place to live Within the past 12 months, did the food you bought not last and you didn't have the money to get more?: I choose not to answer this question Within the past 12 months, did you worry whether your food would run out before you got money to buy more?: I choose not to answer this question Do you have trouble paying for medicines?: No Do you have trouble getting transportation to medical appointments?: No Do you have trouble paying your heating and electricity bill?: No Do you have trouble taking care of your child, family member or friend?: No Do you have trouble with day-to-day activities such as bathing, preparing meals, shopping, managing finances, etc.?: No Are you currently unemployed and looking for a job?: No Are you interested in more education?: I choose not to answer this question Please select the resources that you would like help with: None Currently or been in a relationship where the following occur: I choose not to answer THRIVE Score: 0 AUDIT C Alcohol Use Questionnaire (AUDIT-C) 1. How often do you have a drink containing alcohol?: Never Total Score: 0 JUDITH-7 AMB Questionnaire JUDITH-7 Date JUDITH - 7 assessed: 01/01/25 Feeling nervous, anxious, or on edge: 0 = Not at all Not being able to stop or control worryin = Not at all Worrying too much about different things: 0 = Not at all Trouble relaxin = Not at all Being so restless that it is hard to sit still: 0 = Not at all Becoming easily annoyed or irritable: 0 = Not at all Feeling afraid as if something awful might happen: 0 = Not at all Total JUDITH-7 score (0-4 normal; 5-9 mild; 10-14 moderate; 15-21 severe): 0 Source: Developed by Drs. Brennon Toro, Kellie Farah, Keny Teixeira and colleagues, with an educational maria l from [employer]. Review of Systems Const All systems reviewed & are unremarkable except as noted in HPI and below Eyes Reports no additional complaints ENT Reports no additional complaints Card Reports no additional complaints Resp Reports no additional complaints GI Reports no additional complaints Reports no additional complaints Physical exam (Primary Care) Vital Signs: Last Vital Signs Temp 98.6 F 01/01/25 08:28 Pulse 63 01/01/25 08:28 Resp 16 01/01/25 08:28 BP 110/80 01/01/25 08:28 Pulse Ox 97 01/01/25 08:28 Oxygen Delivery Method Room Air 01/01/25 08:28 BMI result Body Mass Index 29.6 Tobacco/Smoking Status: Tobacco use Status Tobacco use date assessed 01/01/25 01/01/25 08:30 Patient Tobacco Use Status Never used Tobacco 01/01/25 08:30 e-Cigarette/Vaping Use Never Used 01/01/25 08:30 PHQ-9: PHQ-9 Score PHQ-9: Total score 1 01/01/25 08:30 Depression Screening Interpretation: Negative Thrive Assessment: Date of Thrive Assessment Date Thrive assessed 01/01/25 01/01/25 08:30 Currently or been in a relationship where the following occur: I choose not to answer Const General: no acute distress HENMT Head: Yes normal to inspection Face and sinus: Yes normal facial exam Mouth: Normal oral and palatal mucosa present Throat: Yes posterior oropharynx normal Eyes General: appearance normal, both eyes and all related structures Neck Neck: Yes no lymphadenopathy and Yes supple Resp Effort & Inspection: normal respiratory effort Auscultation: clear to auscultation bilaterally Cardio Rhythm: regular rhythm Heart sounds: S1 normal heart sound present and S2 normal heart sound present GI Inspection: Yes normal to inspection Palpation (GI): Soft to palpation Percussion: Yes normal to percussion Auscultation: normal bowel sounds Extrem Right upper extremity: wrist (Tinel's positive bilaterally) Details: normal to inspection and Tinel's negative Coding Level of Care Code Est Pt Prev Care 40-64y(56832) Diagnoses Carpal tunnel syndrome G56.00 Annual physical exam Z00.00 Nephrolithiasis N20.0 Hypothyroid E03.9 Assessment & Plan Assessment & Plan (1) Carpal tunnel syndrome: Code(s): G56.00 - Carpal tunnel syndrome, unspecified upper limb Category: Medical Plan: Obtain EMG to evaluate for carpal tunnel syndrome bilaterally, patient was advised to wear wrist support at night and avoid frequent use of hands (2) Annual physical exam: Code(s): Z00.00 - Encounter for general adult medical examination without abnormal findings Category: Medical Plan: Well-balanced diet regular physical activity discussed with the patient. She is up-to-date with the Pap smear mammogram by natural resources professor. (3) Nephrolithiasis: Code(s): N20.0 - Calculus of kidney Category: Medical Plan: For history of nephrolithiasis obtain renal ultrasound (4) Hypothyroid: Code(s): E03.9 - Hypothyroidism, unspecified Category: Medical Plan: Continue levothyroxine Orders: Orders Hemoglobin A1c 1 Year Z00.00 - Encounter for general adult medical examination without abnormal findings NE electromyogram (EMG) Today G56.00 - Carpal tunnel syndrome, unspecified upper limb NE nerve conduction velocity Today G56.00 - Carpal tunnel syndrome, unspecified upper limb UA w Microscopic Today Z00.00 - Encounter for general adult medical examination without abnormal findings Urine Culture Today Z00.00 - Encounter for general adult medical examination without abnormal findings US renal BI Today N20.0 - Calculus of kidney Comprehensive Dodge. Panel Fast 1 Year E03.9 - Hypothyroidism, unspecified, N20.0 - Calculus of kidney, Z00.00 - Encounter for general adult medical examination without abnormal findings Complete Blood Count Auto Diff 1 Year E03.9 - Hypothyroidism, unspecified, N20.0 - Calculus of kidney, Z00.00 - Encounter for general adult medical examination without abnormal findings Lipid Panel 1 Year E03.9 - Hypothyroidism, unspecified, N20.0 - Calculus of kidney, Z00.00 - Encounter for general adult medical examination without abnormal findings TSH reflex Free T4 1 Year E03.9 - Hypothyroidism, unspecified, N20.0 - Calculus of kidney, Z00.00 - Encounter for general adult medical examination without abnormal findings Vitamin D 25-OH Total 1 Year E03.9 - Hypothyroidism, unspecified, N20.0 - Calculus of kidney, Z00.00 - Encounter for general adult medical examination without abnormal findings UA w Microscopic 1 Year E03.9 - Hypothyroidism, unspecified, N20.0 - Calculus of kidney, Z00.00 - Encounter for general adult medical examination without abnormal findings Medications: New meloxicam 15 mg PO DAILY 14 tabs 0RF
[2025-01-01 08:28] VITALS: BP 110/80; PULSE 63; RESP 16; TEMP 37; O2SAT 97; BMI 29.6
--- OUTSIDE RECORDS SUMMARY | 2025-01-01 08:57 | XMS_ITS | Clinical Summary ---
Author Organization [address] [facility] Address [address] [place] [address] Phone Care Team Providers Care Wearing Apparel Presser Name Role Phone Delia Hinds MD Primary Care Provider [phone] Social History Tobacco Use Types Packs/Day Years [...] intraepithelial lesion or malignancy 04/07/2024 10:59 AM [facility] General Categorization Negative 04/07/2024 10:59 AM [facility] Specimen Adequacy Satisfactory for evaluation, endocervical/ocasio sformation zone component present 04/07/2024 10:59 AM [facility] Pap Methodology Liquid Based Pap Test 04/07/2024 10:59 AM [facility] Disclaimer The Pap test is a screening test which carries an inherent false negative rate. These test results should be correlated with the patient's clinical findings and history. This Pap test was processed using an automated screening system. Technical cytopathology services provided by [facility], at [address] [place] [address], [place] [address] (CLIA # [id number]/Nichelle Vazquez MD, Esthetician Makeup Artist.) 04/07/2024 10:59 AM EST [facility] Console Pap Interpretation Reported 04/07/2024 10:59 AM EST [facility] Brushing/Spatula Cervix uteri structure / Unknown 04/02/2024 04/03/2024 6:34 AM EST us Kushal Wang MD LAB CYTOLOGY ORDERABLES Final Result [facility] [address] [place] [address], * CANDIE SCREENING DIGITAL (01/04/2022 7:11 PM EDT) Anatomical Region Laterality Modality Mammography 01/04/2022 2:03 PM EDT Narrative 01/04/2022 7:11 PM EDT [facility] Diagnostic Imaging Department [address] [place] [address] Patient: NIMAFABIHODAFREDERICK /Age/Sex: 1970 - 51 - F Unit#: [id number] Location/Status: SPDIMA/REG CLI Mnemonic/Ordering Site: [facility] Ordering Physician: KUSHAL FU MD Candie Screening Digital - 01/04/22 - 3565 History: Bilateral breast cancer screening. 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 Technique: Digital mammography. Conventional CC and MLO projections with tomosynthesis MLO views and computer aided detection. Comparison: [facility] 01/16/2020 dating back to 07/03/2013. Findings: Breast tissue consists of fatty and fibroglandular elements (category b density) bilaterally (as calculated by [employer] software). Tissue marker in place posterior superior left breast. Stable adjacent asymmetry. There is no suspicious group of microcalcifications, mass, architectural distortion or suspicious change in breast tissue density. Impression: No evidence of malignancy. BIRADS category 1; negative study, 3341F 83810, 95319 Note: Patient information entered into a reminder system with a target due date for the next mammogram: CPT II 7025F Dictating Physician: TOMMY HENSLEY MD Electronically Signed by: TOMMY HENSLEY MD Dic Date/Time: 01/04/221908 Sign date/Time: 01/04/221910 Procedure Note Tommy Hensley MD - 04/06/2023 [facility] Diagnostic Imaging Department [address] [place] [address] Patient: FREDERICK WHITAKER /Age/Sex: 1970 - 51 - F Unit#: [id number] Location/Status: [facility]/REG CLI Mnemonic/Ordering Site: [facility] Ordering Physician: KUSHAL FU MD Candie Screening Digital - 01/04/22 - 1446 History: Bilateral breast cancer screening. Prior benign biopsy leftbreast diagnosed fibroadenoma September 2018. Technique: Digital mammography. Conventional CC and MLO projectionswith tomosynthesis MLO views and computer aided detection. Comparison: [facility] 01/16/2020 dating back to 07/03/2013. Findings: Breast tissue consists of fatty and fibroglandular elements (category b density) bilaterally (as calculated by [employer]). Tissue marker in place posterior superior left breast. Stable adjacent asymmetry. There is no suspicious group of microcalcifications, mass, architectural distortion or suspicious change in breast tissue density. Impression: No evidence of malignancy. BIRADS category 1; negative study, 3341F 68849, 45015 Note: Patient information entered into a reminder system with a target duedate for the next mammogram: CPT II 7025F Dictating Physician: TOMMY HENSLEY MD Electronically Signed by: TOMMY HENSLEY MD Dic Date/Time: 01/04/221908 Sign date/Time: 01/04/221910 Kushal Wang MD IMG BI PROCEDURES Final Result from Last 3 Months or Most Recently Relevant to Health Maintenance Insurance [employer] Care Teams Wearing Apparel Presser Relationship Specialty Start Date End Date Delia Hinds MD [address] [place] [address] PCP - General Internal Medicine 04/03/24
--- OUTSIDE RECORDS SUMMARY | 2025-01-01 08:58 | XMS_ITS | Encounter Summary ---
Author Organization [facility] Address [address] [place] [address] Care Team Providers Care Supervisor Concrete Stone Fabricating Name Role Phone Delia Hinds MD Primary Care Provider [phone] Encounter Details Date Type Department Care Team (Latest Contact Info) Description 04/03/2024 Lab Requisition [facility] - Main Lab [address] [place] [address] Sanjana Wang MD [address] [facility] [address] [place] [id number] Encounter for gynecological examination (general) (routine) without [...] LAB MICROBIOLOGY METHOD 04/03/2024 12:15 PM EST [facility] Chlamydia, RNA Probe Negative Negative LAB MICROBIOLOGY METHOD 04/03/2024 12:15 PM [facility] Brushing/Spatula Cervix uteri structure / Unknown 04/02/2024 04/03/2024 6:34 AM EST Sanjana Wang MD LAB CYTOLOGY ORDERABLES Final Result [facility] [address] [place] [address], * Pap smear (04/02/2024 12:00 AM EST) [...] Technical cytopathology services provided by [facility], at [address] [place] [address] (CLIA # [id number]/Nichelle Vazquez MD, Consumer Relations Complaint Clerk.) 04/07/2024 10:59 AM [facility] Console Pap Interpretation Reported 04/07/2024 10:59 AM [facility] Brushing/Spatula Cervix uteri structure / Unknown 04/02/2024 04/03/2024 6:34 AM EST us Sanjana Wang MD LAB CYTOLOGY ORDERABLES Final Result [facility] ([facility]) [facility] [address] [place] [address], documented in this encounter Visit Diagnoses Diagnosis Encounter for gynecological examination (general) (routine) without abnormal findings documented in this encounter Care Teams Supervisor Concrete Stone Fabricating Relationship Specialty Start Date End Date Delia Hinds MD [address] [place] [id number] PCP - General Internal Medicine 04/03/24 documented as of this encounter
== END 2025-01-01 09:13 | disposition home or self-care (01) ==
LOC: HO.HMCC 08:22
PROVIDERS: PCP Internal Medicine; Visit Provider Internal Medicine
DX: Z00.00 Encounter for general adult medical examination without abnormal findings (principal); G56.00 Carpal tunnel syndrome, unspecified upper limb; N20.0 Calculus of kidney; E03.9 Hypothyroidism, unspecified

== ENCOUNTER 2025-01-01 08:22 | Outpatient (REF) | payer BC, SELFPAY ==
[2025-01-01 10:45] LABS: Appearance Urine Clear; Glucose Urine UA Negative (Negative); PH 7.0 (5.0-9.0); Specific Gravity - Urine 1.010 (1.005-1.025); UMIC TRIGGER UA YES
== END 2025-01-01 08:23 | disposition home or self-care (01) ==
LOC: HO.HMGCLDS 08:22
PROVIDERS: PCP Internal Medicine; Visit Provider Internal Medicine
DX: Z00.00 Encounter for general adult medical examination without abnormal findings (principal); M79.642 Pain in left hand; M79.641 Pain in right hand; G56.00 Carpal tunnel syndrome, unspecified upper limb; N20.0 Calculus of kidney; E03.9 Hypothyroidism, unspecified
CPT/HCPCS: 81001; 87086; 96127

== ENCOUNTER 2025-01-27 07:57 | Outpatient (REF) | payer BC, SELFPAY ==
--- NOTE | 2025-01-27 08:00 | EMG_ITS ---
Chief complain: pain, numbness and tingling in bilateral upper extremities Referred by: Sanford Hinds MD Procedure done: NCS and EMG of bilateral upper extremities Bilateral median and ulnar motor studies were performed, median and ulnar mixed sensory studies were performed and radial sensory studies were performed. EMG was performed. Findings: Bilateral median distal latencies were moderately prolonged. Right median mixed response was absent. Left side revealed moderate prolongation of distal latencies and moderate slowing of conduction velocity. 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
--- OUTSIDE RECORDS SUMMARY | 2025-01-27 08:08 | XMS_ITS | Clinical Summary ---
Author Organization 299 [facility] Address [address] [place] [address] Phone Care Team Providers Care Polysomnographic Technologist Name Role Phone Delia Hinds MD Primary Care Provider [phone] Social History Tobacco Use Types Packs/Day Years [...] Depression Screening 03/05/2024 COVID-19 Vaccine (1 - 2024-2 6 season) 2024 Influenza Vaccine (#1) 2024 Cervical [...] intraepithelial lesion or malignancy 04/07/2024 10:[address] [facility] General Categorization Negative 04/07/2024 10:[address] [facility] Specimen Adequacy Satisfactory for evaluation, endocervical/ocasio sformation zone component present 04/07/2024 10:[address] [facility] Pap Methodology Liquid Based Pap Test 04/07/2024 10:[address] [facility] Disclaimer The Pap test is a screening test which carries an inherent false negative rate. These test results should be correlated with the patient's clinical findings and history. This Pap test was processed using an automated screening system. Technical cytopathology services provided by [facility], at [address] [place] [address], [place] [address] (CLIA # [id number]/Nichelle Vazquez MD, Network Professional.) 04/07/2024 10:59 AM EST [facility] Console Pap Interpretation Reported 04/07/2024 10:59 AM EST [facility] Brushing/Spatula Cervix uteri structure / Unknown 04/02/2024 04/03/2024 6:34 AM EST us Kushal Wang MD LAB CYTOLOGY ORDERABLES Final Result [facility] [address] [place] [address], * CANDIE SCREENING DIGITAL (01/04/2022 7:11 PM EDT) Anatomical Region Laterality Modality Mammography 01/04/2022 2:03 PM EDT Narrative 01/04/2022 7:11 PM EDT Diagnostic Imaging Department [address] [place] [address] Patient: INMAFABIHODAFREDERICK /Age/Sex: 1970 - 51 - F Unit#: [id number] Location/Status: SPDIMA/REG CLI Mnemonic/Ordering Site: [facility] Ordering Physician: KUSHAL FU MD Candie Screening Digital - 01/04/22 - 8299 History: Bilateral breast cancer screening. 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 Technique: Digital mammography. Conventional CC and MLO projections with tomosynthesis MLO views and computer aided detection. Comparison: [facility] 01/16/2020 dating back to 07/03/2013. Findings: Breast tissue consists of fatty and fibroglandular elements (category b density) bilaterally (as calculated by [employer] software). Tissue marker in place posterior superior left breast. Stable adjacent asymmetry. There is no suspicious group of microcalcifications, mass, architectural distortion or suspicious change in breast tissue density. Impression: No evidence of malignancy. BIRADS category 1; negative study, 3341F 37239, 41249 Note: Patient information entered into a reminder system with a target due date for the next mammogram: CPT II 7025F Dictating Physician: TOMMY HENSLEY MD Electronically Signed by: TOMMY HENSLEY MD Dic Date/Time: 01/04/221908 Sign date/Time: 01/04/221910 Procedure Note Tommy Hensley MD - 04/06/2023 Diagnostic Imaging Department [address] [place] [address] Patient: FREDERICK WHITAKER /Age/Sex: 1970 - 51 - F Unit#: [id number] Location/Status: [facility]/REG CLI Mnemonic/Ordering Site: [facility] Ordering Physician: KUSHAL FU MD Candie Screening Digital - 01/04/22 - 1446 History: Bilateral breast cancer screening. Prior benign biopsy leftbreast diagnosed fibroadenoma September 2018. Technique: Digital mammography. Conventional CC and MLO projectionswith tomosynthesis MLO views and computer aided detection. Comparison: [facility] 01/16/2020 dating back to 07/03/2013. Findings: Breast tissue consists of fatty and fibroglandular elements (category b density) bilaterally (as calculated by [employer]). Tissue marker in place posterior superior left breast. Stable adjacent asymmetry. There is no suspicious group of microcalcifications, mass, architectural distortion or suspicious change in breast tissue density. Impression: No evidence of malignancy. BIRADS category 1; negative study, 3341F 57198, 02028 Note: Patient information entered into a reminder system with a target duedate for the next mammogram: CPT II 7025F Dictating Physician: TOMMY HENSLEY MD Electronically Signed by: TOMMY HENSLEY MD Dic Date/Time: 01/04/221908 Sign date/Time: 01/04/221910 Kushal Wang MD IMG BI PROCEDURES Final Result from Last 3 Months or Most Recently Relevant to Health Maintenance Insurance [employer] Care Teams Polysomnographic Technologist Relationship Specialty Start Date End Date Delia Hinds MD [address] [place] [address] PCP - General Internal Medicine 04/03/24
--- OUTSIDE RECORDS SUMMARY | 2025-01-27 08:08 | XMS_ITS | Encounter Summary ---
Author Organization [facility] Address [address] [place] [address] Care Team Providers Care Admissions Evaluator Name Role Phone Delia Hinds MD Primary Care Provider [phone] Encounter Details Date Type Department Care Team (Latest Contact Info) Description 04/03/2024 Lab Requisition [facility] - Main Lab [address] [place] [address] Sanjana Wang MD 299 [facility] [address] [place] [phone] Encounter for gynecological examination (general) (routine) without [...] LAB MICROBIOLOGY METHOD 04/03/2024 12:15 PM EST [facility] Chlamydia, RNA Probe Negative Negative LAB MICROBIOLOGY METHOD 04/03/2024 12:15 PM [facility] Brushing/Spatula Cervix uteri structure / Unknown 04/02/2024 04/03/2024 6:34 AM EST Sanjana Wang MD LAB CYTOLOGY ORDERABLES Final Result [facility] [address] [place] [address], * Pap smear (04/02/2024 12:00 AM EST) Interpretation Negative for intraepithelial lesion or malignancy 04/07/2024 10:59 AM [facility] General Categorization Negative 04/07/2024 10:59 AM [facility] Specimen Adequacy Satisfactory for evaluation, endocervical/ocasio sformation zone component present 04/07/2024 10:59 AM [facility] Pap Methodology Liquid Based Pap Test 04/07/2024 10:59 AM [facility] Disclaimer The Pap test is a screening test which carries an inherent false negative rate. These test results should be correlated with the patient's clinical findings and history. This Pap test was processed using an automated screening system. Technical cytopathology services provided by [facility], at [address] [place] [address] (CLIA # [id number]/Nichelle Vazquez MD, Hat Stock Laminating Machine Operator.) 04/07/2024 10:59 AM [facility] Console Pap Interpretation Reported 04/07/2024 10:59 AM [facility] Brushing/Spatula Cervix uteri structure / Unknown 04/02/2024 04/03/2024 6:34 AM EST us Sanjana Wang MD LAB CYTOLOGY ORDERABLES Final Result [facility] ([facility]) [facility] [address] [place] [address], documented in this encounter Visit Diagnoses Diagnosis Encounter for gynecological examination (general) (routine) without abnormal findings documented in this encounter Care Teams Admissions Evaluator Relationship Specialty Start Date End Date Delia Hinds MD [address] [place] [phone] PCP - General Internal Medicine 04/03/24 documented as of this encounter
== END 2025-01-27 07:58 | disposition home or self-care (01) ==
LOC: HO.NEURO 07:57
PROVIDERS: PCP Internal Medicine; Visit Provider Internal Medicine
DX: R20.2 Paresthesia of skin (principal); R20.0 Anesthesia of skin; G56.00 Carpal tunnel syndrome, unspecified upper limb
CPT/HCPCS: 95886; 95911

== ENCOUNTER → 2025-01-27 08:00 | Outpatient (BNV) | payer BC, SELFPAY | PROVIDERS: PCP Internal Medicine; Visit Provider Psychiatry & Neurology Neurology | DX: G56.03 Carpal tunnel syndrome, bilateral upper limbs (principal) | CPT/HCPCS: 95886; 95911 ==

== ENCOUNTER 2025-03-02 13:01 | Outpatient (REF) | payer BC, SELFPAY ==
--- NOTE | ~2025-03-02 | US_ITS ---
CLINICAL HISTORY: N20.0 - Calculus of kidney US Renal Comparison: None provided Findings: Right kidney normal size and echotexture, 10.4 x 5.2 x 5 cm length. Left kidney normal size and echotexture, 9 x 5.8 x 5.2 cm length. Nearly 2.5 mm nonobstructive intrarenal stone in the upper polar region of the right kidney. No signs of obstructive uropathy bilaterally. IMPRESSION: No acute sonographic abnormality in the bilateral kidneys. This document has been electronically signed by: Lencho Browne MD on 03/04/2025 10:03:14
--- OUTSIDE RECORDS SUMMARY | 2025-03-02 14:55 | XMS_ITS | Clinical Summary ---
Author Organization [address] [facility] Address [address] [place] [address] Phone Care Team Providers Care Engine Room Helper Name Role Phone Delia Hinds MD Primary Care Provider [phone] Social History Tobacco Use Types Packs/Day Years [...] intraepithelial lesion or malignancy 04/07/2024 10:59 AM [facility] at 1059 EST General Categorization Negative 04/07/2024 10:59 AM [facility] Specimen Adequacy Satisfactory for evaluation, endocervical/ocasio sformation zone component present 04/07/2024 10:59 AM EST [facility] Pap Methodology Liquid Based Pap Test 04/07/2024 10:59 AM [facility] Disclaimer The Pap test is a screening test which carries an inherent false negative rate. These test results should be correlated with the patient's clinical findings and history. This Pap test was processed using an automated screening system. Technical cytopathology services provided by [facility], at [address] [place] [address], [place] [address] (CLIA # [id number]/Nichelle Vazquez MD, Funeral Car Chauffeur.) 04/07/2024 10:59 AM EST [facility]) [facility] Console Pap Interpretation Reported 04/07/2024 10:59 AM EST [facility] Brushing/Spatula Cervix uteri structure / Unknown 04/02/2024 04/03/2024 6:34 AM EST us Kushal Wang MD LAB CYTOLOGY ORDERABLES Final Result [facility]) [facility] [address] [place] [address], * CANDIE SCREENING DIGITAL (01/04/2022 7:11 PM EDT) Anatomical Region Laterality Modality Mammography 01/04/2022 2:03 PM EDT Narrative 01/04/2022 7:11 PM EDT [facility] Diagnostic Imaging Department [address] [place] [address] Patient: JULIANNEDAYANA /Age/Sex: 1970 - 51 - F Unit#: [id number] [facility]Ordering Site: [facility] Ordering Physician: KUSHAL FU MD Candie Screening Digital - 01/04/22 - 3487 History: Bilateral breast cancer screening. 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 Technique: Digital mammography. Conventional CC and MLO projections with tomosynthesis MLO views and computer aided detection. Comparison: [facility] 01/16/2020 dating back to 07/03/2013. Findings: Breast tissue consists of fatty and fibroglandular elements (category b density) bilaterally (as calculated by [employer]et[employer] software). Tissue marker in place posterior superior left breast. Stable adjacent asymmetry. There is no suspicious group of microcalcifications, mass, architectural distortion or suspicious change in breast tissue density. Impression: No evidence of malignancy. BIRADS category 1; negative study, 3341F 30812, 65030 Note: Patient information entered into a reminder system with a target due date for the next mammogram: CPT II 7025F Dictating Physician: TOMMY HENSLEY MD Electronically Signed by: TOMMY HENSLEY MD Dic Date/Time: 01/04/221908 Sign date/Time: 01/04/221910 Procedure Note Tommy Hensley MD - 04/06/2023 [facility] Diagnostic Imaging Department [address] [place] [address] Patient: DAYANA WHITAKER /Age/Sex: 1970 - 51 - F Unit#: [id number] [facility] Mnemonic/Ordering Site: [facility] Ordering Physician: KUSHAL FU MD Candie Screening Digital - 01/04/22 - 1446 History: Bilateral breast cancer screening. Prior benign biopsy leftbreast diagnosed fibroadenoma September 2018. Technique: Digital mammography. Conventional CC and MLO projectionswith tomosynthesis MLO views and computer aided detection. Comparison: [facility] 01/16/2020 dating back to 07/03/2013. Findings: Breast tissue consists of fatty and fibroglandular elements (category b density) bilaterally (as calculated by [employer]par[employer]oftware). Tissue marker in place posterior superior left breast. Stable adjacent asymmetry. There is no suspicious group of microcalcifications, mass, architectural distortion or suspicious change in breast tissue density. Impression: No evidence of malignancy. BIRADS category 1; negative study, 3341F 67576, 39203 Note: Patient information entered into a reminder system with a target duedate for the next mammogram: CPT II 7025F Dictating Physician: TOMMY HENSLEY MD Electronically Signed by: TOMMY HENSLEY MD Dic Date/Time: 01/04/221908 Sign date/Time: 01/04/221910 Kushal Wang MD IMG BI PROCEDURES Final Result from Last 3 Months or Most Recently Relevant to Health Maintenance Insurance [employer] Care Teams Engine Room Helper Relationship Specialty Start Date End Date Delia Hinds MD [address] [place] [phone] PCP - General Internal Medicine 04/03/24
--- OUTSIDE RECORDS SUMMARY | 2025-03-02 14:55 | XMS_ITS | Encounter Summary ---
[facility] Address [address] [place] [address] Care Team Providers Care Director Of Graduate Admissions Name Role Phone Delia Hinds MD Primary Care Provider [phone] Encounter Details Date Type Department Care Team (Latest Contact Info) Description 04/03/2024 Lab Requisition [facility] - Main Lab [address] [place] [address] Sanjana Wang MD 299 [facility] [address] [place] [phone] Encounter for gynecological examination (general) (routine) without [...] LAB MICROBIOLOGY METHOD 04/03/2024 12:15 PM EST [facility] Chlamydia, RNA Probe Negative Negative LAB MICROBIOLOGY METHOD 04/03/2024 12:15 PM [facility] Brushing/Spatula Cervix uteri structure / Unknown 04/02/2024 04/03/2024 6:34 AM EST Sanjana Wang MD LAB CYTOLOGY ORDERABLES Final Result [facility] [address] [place] [address], * Pap smear (04/02/2024 12:00 AM EST) Interpretation Negative for intraepithelial lesion or malignancy 04/07/2024 10:59 AM [facility] at 1059 EST General Categorization Negative 04/07/2024 10:59 AM [facility] [...] screening system. Technical cytopathology services provided by [facility], at [address] [place] [address] (CLIA # [id number]/Nichelle Vazquez MD, Consulting Engineer.) 04/07/2024 10:59 AM [facility] Console Pap Interpretation Reported 04/07/2024 10:59 AM [facility] Brushing/Spatula Cervix uteri structure / Unknown 04/02/2024 04/03/2024 6:34 AM EST us Sanjana Wang MD LAB CYTOLOGY ORDERABLES Final Result [facility] ([facility]) [facility] [address] [place] [address], documented in this encounter Visit Diagnoses Diagnosis Encounter for gynecological examination (general) (routine) without abnormal findings documented in this encounter Care Teams Director Of Graduate Admissions Relationship Specialty Start Date End Date Delia Hinds MD [address] [place] [phone] PCP - General Internal Medicine 04/03/24 documented as of this encounter
== END 2025-03-02 13:02 | disposition home or self-care (01) ==
LOC: HO.HMGCX 13:01
PROVIDERS: PCP Internal Medicine; Visit Provider Internal Medicine
DX: N20.0 Calculus of kidney (principal)
CPT/HCPCS: 76775

== ENCOUNTER → 2025-03-02 13:05 | Outpatient (BNV) | payer BC, SELFPAY | PROVIDERS: PCP Internal Medicine; Visit Provider Radiology Diagnostic Radiology | DX: N20.0 Calculus of kidney (principal) | CPT/HCPCS: 76775 ==